=== PATIENT | male | born 1985 | race Asian ===

== ENCOUNTER 2018-07-26 17:25 | Emergency (ER) | payer MEDICAID ==
[~2018-07-26] VITALS: Ht 175.3 cm; Wt 79.9 kg
[2018-07-26 17:35] VITALS: BP 129/71; Ht 175.3 cm; Wt 79.9 kg
== END 2018-07-26 19:12 | disposition home or self-care (01) ==
LOC: ED 17:25
DX: S56.011A Strain of flexor muscle, fascia and tendon of right thumb at forearm level, initial encounter (principal); W18.39XA Other fall on same level, initial encounter; Y93.69 Activity, other involving other sports and athletics played as a team or group; Y92.89 Other specified places as the place of occurrence of the external cause; Y99.8 Other external cause status